=== PATIENT | female | born 1950 | race Caucasian/White ===

== ENCOUNTER → 2023-12-31 08:55 | Outpatient (REF) | payer MEDICARE, OTHER, SELFPAY ==
[2023-12-31 09:57] LABS: % Basophils 0.4 % (0-2); % Eosinophils 0.3 % (0-6); % Immature Granulocytes 0.4 % (0-0.5); % Lymphocytes 24.4 % (20.5-51.1); % Monocytes 9.8 % (1.7-9.3); % Neutrophils 64.7 % (42.2-75.2); Absolute Lymphocytes 1.6 10^3/uL (1.2-3.4); Absolute Monocytes 0.7 10^3/uL (0.1-0.6); Absolute Neutrophils 4.4 10^3/uL (1.4-6.5); Hematocrit 40.8 % (37.0-47.0); Hemoglobin 14.4 g/dL (12.0-16.0); Mean Corp Hgb Conc. 35.3 g/dL (33.0-37.0); Mean Corpuscular Hgb 31.8 pg (27.0-31.0); Mean Corpuscular Volume 90.1 fL (81.0-99.0); Mean Platelet Volume 9.5 fL (7.4-10.4); Nucleated Red Blood Cells % 0 %; Platelet Count 273 10^3/uL (130-400); Red Blood Cell Count 4.53 10^6/uL (4.20-5.40); Red Cell Dist. Width 11.9 % (11.5-14.5); White Blood Cell Count 6.7 10^3/uL (4.8-10.8)
[2023-12-31 10:13] LABS: INR 1.21; PT 15.1 Sec (11.4-14.6)
[2023-12-31 10:49] LABS: ALT (SGPT) 16 U/L (0-35); AST (SGOT) 24 U/L (14-36); Albumin 3.9 g/dl (3.5-5.0); Alkaline Phosphatase 179 U/L (38-126); Blood Urea Nitrogen 15 mg/dl (7-17); Calcium 9.6 mg/dl (8.4-10.2); Carbon Dioxide 28 mmol/L (22-30); Chloride 100 mmol/L (98-107); Glucose 92 mg/dl (70-99); Magnesium 1.9 mg/dl (1.6-2.3); Potassium 4.1 mmol/L (3.5-5.1); Sodium 137 mmol/L (135-145); Total Bilirubin 1.9 mg/dl (0.2-1.3); Total Protein 6.9 g/dl (6.3-8.2); eGFR > 60.00
== END ==
LOC: SDSPAT 08:55
PROVIDERS: ATTENDING PHYSICIAN Internal Medicine Cardiovascular Disease; FAMILY PHYSICIAN Family Medicine; OTHER PHYSICIAN Internal Medicine Cardiovascular Disease
DX: Z01.818 Encounter for other preprocedural examination (principal); I48.91 Unspecified atrial fibrillation
CPT/HCPCS: 36415; 80053; 83735; 85025; 85610; 86850; 86900; 86901; 93005

== ENCOUNTER 2024-01-17 08:13 | Day surgery (SDC) | payer MEDICARE, OTHER, SELFPAY ==
[2023-12-31 09:31] VITALS: BMI 22.1
[2024-01-17] VITALS (10 sets, daily range): BP systolic 144–184; BP diastolic 67–90; BMI 22.0
[2024-01-17 11:35] LABS: ACT-LR - POC 342 Seconds (116-155)
[2024-01-17 11:52] LABS: ACT-LR - POC 255 Seconds (116-155)
--- NOTE | 2024-01-17 12:11 | ITS.CL.ABL ---
[facility] - Ablation
Ablation
Procedure Report:
ELECTROPHYSIOLOGY ABLATION STUDY
DATE:: January 17, 2024 REFERRING: Dr. Isael hC
INDICATION: Paroxysmal supraventricular tachycardia in the form of atrial fibrillation. Prior pulmonary vein isolation in January 2015 with recent recurrence of atrial fibrillation on sotalol 120 mg twice daily
HISTORY: See H and P. As above
ANTIARRHYTHMIC DRUG: Sotalol 120 mg twice daily
PRE-PROCEDURE SATISH: No atrial thrombus
PRESENTING RHYTHM: Sinus bradycardia
'TIME-OUT': called and confirmed.
SEDATION/ANESTHESIA: provided via the anesthesia department using general anesthesia (LMA).
INTRAVENOUS/ARTERIAL ACCESS:
Right femoral venous - 8Fr
Left femoral venous - 8 Fr, 6 Fr
[id number] suture was utilized
Ultrasound guidance for bilateral femoral vein access was utilized by me to obtain access with demonstration of normal anatomy
CHADS-VASC Score:
HAS-Bled Score
PROCEDURE:
1. A decapolar CS catheter was placed within the CS for mapping and pacing. This was also used as the reference catheter for the 3-D map.
2. The intracardiac ultrasound catheter was positioned in the RA to identify the FO for targeting of transseptal puncture, assist in identification of the pulmonary vein ostia, monitoring pre and post ablation pulmonary vein flow velocities,
monitoring for 'bubble' formation during RF application as a sign of thermal injury, and to monitor for pericardial effusion during mapping and ablation procedure. Left atrial size, LV ejection fraction, and pulmonary vein flows were monitored
pre and post ablation procedure. The other valves were inspected and found to be free of significant regurgitation or stenosis.
3. Half of the calculated heparin bolus was administered prior to the first transeptal puncture. Transseptal puncture was performed to diagnose RA and LA pressure so that safety of LA mapping and ablation could be further assessed, and to access
the left atrium and pulmonary veins for mapping and ablation. This entailed advancing an 10 [place] steerable with dilator into the superior vena cava and withdrawing both (monitoring intracardiac ultrasound, fluoroscopy and tip pressure) with the
tip oriented toward the atrial septum. The fossa ovalis was engaged (indicated by sudden displacement of the sheath tip as well as tenting of the fossa seen on intracardiac ultrasound). Left atrial access required a pass with the [place]
needle extended. Left atrial catheter position was confirmed by pressure monitoring (RA mean pressure 8 mm Hg and LA mean presure 14 mm Hg), LA saturation (99%), as well as fluoroscopy. The sheath was advanced over the dilator and positioned in
the left atrium. This procedure was repeated for the Agilis sheath. The remainder of the calculated heparin bolus was administered and heparin was
infused to maintain ACT at 300 -350 seconds throughout the case.
4. RA pacing was performed via the proximal decapolar poles and LA pacing was performed via the distal decapolr poles.
5. A quadrapolar catheter was first positioned at the His position for His Bundle recording which was tagged via the 3-D Navex sytem, and then passed to the RVA for RV pacing and recording.
6. The multipolar catheter and the 4 mm tactic cath were placed at each of the LIPV, LSPV, RSPV and the RIPV. There is reconnection at the septal wilda of the right inferior pulmonary vein only.
7. Next, a 3-D map was created using Navex. A 3-D reconstructed CT image was compared to the 3-D Navex map to assist in anatomic interpretation, mapping and ablation. The CT image and the NavX image were fused.
8. Pulmonary vein and extrapulmonary lesions performed. We performed ablation at the septal wilda down through the inferior posterior region of the right inferior pulmonary vein and extended the left vein lesion sets from the inferior portion of
the ligament of Anshul below the left inferior pulmonary vein and onto the posterior wall. No heating of the esophagus was noted. There was some fractionated signal in the posterior wall outside the right inferior pulmonary vein which was
ablated. We utilized 30 W, 42 degrees and 15 to 20-second lesions targeting a 10 to 20 g force. Entrance next block was confirmed in all 4 pulmonary veins and bidirectional block with interest was conduction time across the CTI from prior ablation
was noted. We paced for phrenic nerve capture along the entire septum without capture of the phrenic nerve prior to ablating the septal aspects of the right superior�right inferior pulmonary veins.
9. Normal sinus node and AV node function noted.
TOTAL FLOURO TIME: 10.4 minutes 112 mg
TOTAL RF DURATION: 12 minutes
REVERSAL OF HEPARIN: 35 mg of protamine, slow IV administration
COMPLICATIONS:
None
Intracardiac US shows no pericardial effusion post ablation.
SUMMARY:
Complex left atrial mapping and ablation.
Isolation of the septal wilda of the right inferior pulmonary vein and extension of both left and right vein lesion sets onto the posterior wall. Additional posterior wall�extrapulmonary lesions were performed outside the right inferior pulmonary
vein on the posterior wall areas of fractionated signal.
RECOMMENDATIONS:
1. Admit to monitored bed.
2. Resume anticoagulation
3. Out of bed 4 hours
4. Consider same-day discharge
Copy to: Dr. Isael Ch
--- NOTE | 2024-01-17 16:14 | W.PN.UPDATE ---
Update Note
Progress Note Update
73 yo WF s/p PVI (same day). She feels good, no cp, sob, richar diet, voiding, b/l groins c/d/i soft. EKG SR with occ PAC's. She will continue OAC Eliquis dose at 7pm tonight at home. She will decrease her sotalol to 80mg bid and continue diltiazem
120mg daily. Activity restrictions reviewed. She will f/u Dr. Ch in 6-8 weeks. She is for d/c/ home after 5pm if groins stable.
SUMMARY:�
Complex left atrial mapping and ablation.
Isolation of the septal wilda of the right inferior pulmonary vein and extension of both left and right vein lesion sets onto the posterior wall.� Additional posterior wall�extrapulmonary lesions were performed outside the right inferior pulmonary
vein on the posterior wall areas of fractionated signal.
RECOMMENDATIONS:
1. Admit to monitored bed.�
2. Resume anticoagulation
3.� Out of bed 4 hours
4.� Consider same-day discharge
Copy to: Dr. Isael Ch
== END 2024-01-17 16:55 | disposition home or self-care (01) ==
LOC: CATH 08:13
PROVIDERS: ATTENDING PHYSICIAN Internal Medicine Cardiovascular Disease; FAMILY PHYSICIAN Family Medicine; OTHER PHYSICIAN Internal Medicine Cardiovascular Disease
DX: I48.0 Paroxysmal atrial fibrillation (principal); I10 Essential (primary) hypertension; Z85.3 Personal history of malignant neoplasm of breast; Z92.3 Personal history of irradiation; Z90.11 Acquired absence of right breast and nipple; Z87.891 Personal history of nicotine dependence; Z79.01 Long term (current) use of anticoagulants; I48.91 Unspecified atrial fibrillation; I48.92 Unspecified atrial flutter; R91.8 Other nonspecific abnormal finding of lung field
CPT/HCPCS: C1732; C1894; C2630; C1892; C1759; C1730; C1766; 76937; 85347; 93005; 93656